=== PATIENT | female | born 1980 | race Caucasian/White ===

== ENCOUNTER 2017-10-03 15:21 | Emergency (ER) | payer MEDICAID, OTHER, SELFPAY ==
[~2017-10-03] VITALS: Ht 165.1 cm; Wt 88.5 kg
[2017-10-03 15:21] VITALS: BP 156/105
[2017-10-03] MEDS ORDERED: ACETAMINOPHEN 500 MG TABLET ONE (16:10)
[2017-10-03 16:22] LABS: RAPID INFLUENZA A Negative (Negative)
[2017-10-03 16:23] LABS: RAPID INFLUENZA B POSITIVE (Negative)
[2017-10-03] MEDS ORDERED: OSELTAMIVIR 75 MG CAPSULE PO ONE (16:30)
[2017-10-03] MEDS ORDERED: ACETAMINOPHEN 500 MG TABLET PO ONE (16:30)
== END 2017-10-03 17:07 | disposition home or self-care (01) ==
LOC: ED 15:55
DX: J11.1 Influenza due to unidentified influenza virus with other respiratory manifestations (principal); J40 Bronchitis, not specified as acute or chronic; J06.9 Acute upper respiratory infection, unspecified; F17.210 Nicotine dependence, cigarettes, uncomplicated
CPT/HCPCS: 71046; 87400; 99285